=== PATIENT | female | born 1945 | race Caucasian/White ===

== ENCOUNTER 2016-07-28 17:08 | Inpatient (IN) | payer MEDICARE, OTHER ==
[2016-07-25 20:56] LABS: BASOPHILS 0.2 %; BASOPHILS ABSOLUTE 0.01 10/3/uL (0.0-0.16); EOSINOPHILS 2.7 %; EOSINOPHILS ABSOLUTE 0.11 10/3/uL (0.0-0.53); HEMATOCRIT 30.4 % (36.0-48.0); HEMOGLOBIN 9.5 g/dL (12.0-16.0); IMMATURE GRANULOCYTES 0.2 %; IMMATURE GRANULOCYTES ABSOLUTE 0.01 10/3/uL (0.0-0.11); LYMPHOCYTES 23.9 %; LYMPHOCYTES ABSOLUTE 0.98 10/3/uL (0.67-4.30); MEAN CORPUS HGB CONC 31.3 g/dL (32.0-36.0); MEAN CORPUSCULAR HEMOGLOB 31.3 pg (26.0-34.0); MEAN PLATELET VOLUME 10.6 fL (9.2-13.0); MONOCYTES 7.8 %; MONOCYTES ABSOLUTE 0.32 10/3/uL (0.21-1.20); NEUTROPHILS 65.2 %; NEUTROPHILS ABSOLUTE 2.67 10/3/uL (2.02-8.40); PLATELET COUNT 54 10/3/uL (150-400); RBC DISTRIBUTION WIDTH 21.2 % (12.0-16.0); RED CELL COUNT 3.04 10/6/uL (4.0-5.6)
[2016-07-25 20:58] LABS: MANUAL DIFF NO %; WHITE BLOOD CELLS 4.1 10/3/uL (4.5-10.5)
[2016-07-25 21:17] LABS: PLATELET ESTIMATE DEC (ADEQUATE)
[2016-07-25 21:18] LABS: ELLIPTOCYTES 1+ (3-10/OIF) (0-2/OIF); MACROCYTES 1+ (5-10/OIF) (0-5/OIF); MICROCYTES 1+ (5-10/OIF) (0-5/OIF); POIKILOCYTOSIS 1+ (5-10/OIF) (0-5/OIF); TEARDROP SHAPED RBCS OCC (0-2/OIF)
[2016-07-25 21:19] LABS: SCHISTOCYTES OCC (0-2/OIF)
--- NOTE | ~2016-07-28 | HP ---
History And Physical [address] [place] [address] NAME: CHRIS LEAHY : 45 STATUS : ADM Jose PAT#: [id number] AGE: 71 ADM/REG DATE : 07/28/16 MR#: [id number] REPORT SERV DATE: 07/29/16 DICTATED BY: DANNY MARTINEZ III DATE: 07/29/16 REPORT STATUS : Draft TRANSCRIBED BY: MODL DATE: 07/29/16 DATE OF ADMISSION: 07/28/2016 DICTATION ENDS HERE OB/MODL Danny Martinez III, M.D. / [id number] CC: Farhan Guillen III, M.D.
--- NOTE | ~2016-07-28 | DS ---
Discharge Summary [place] [id number] [facility] [place]. [address] NAME: CHRIS LEAHY : 45 STATUS : DIS IN PAT#: [id number] AGE: 71 ADM/REG DATE : 07/31/16 MR#: [id number] REPORT SERV DATE: 08/06/16 DICTATED BY: CATALINO HIGUERA DATE: 08/05/16 REPORT STATUS : Draft TRANSCRIBED BY: MODMatt DATE: 08/05/16 ADMISSION DATE: 07/28/2016 DISCHARGE DATE: 08/05/2016 DISCHARGE DIAGNOSES: 1. Exchange of bilateral double-J stents. 2. Urinary tract infection, currently resolved. 3. Toxic metabolic encephalopathy. 4. 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 5. Metastatic breast cancer with poor prognosis. 6. Type 2 diabetes mellitus. 7. Atelectasis. 8. Hypothyroidism. 9. Chronic kidney disease. 10.Hypertension. 11.Gastroesophageal reflux. 12.Major depression. 13.Obesity. CONSULTANTS DURING THIS HOSPITALIZATION: Dr. Danny Martinez of Urology and Dr. Orion Feng of Hematology/Oncology. INVASIVE PROCEDURES DONE DURING THIS HOSPITALIZATION: Exchange of double-J stents bilaterally for obstruction. Placement of a PleurX catheter for malignant ascites. BRIEF HISTORY OF PRESENT ILLNESS: The patient is a 71-year-old female, admitted to the Urology Service for exchange of the double-J stents. Medicine Service was initially asked to consult the patient for ascites. For detailed history and physical exam, please see note dictated by Dr. Danny Martinez on 07/28/2016. HOSPITAL COURSE: After being admitted to the hospital, Dr. Martinez did perform the procedure and exchanged both her double-J stents and relieved kidney obstruction. There was an evidence of urinary tract infection with Enterococcus cloacae that was sensitive to gentamicin, this patient was dosed with gentamicin appropriately and has received a complete treatment of the antibiotics. She also was on broad-spectrum antibiotics initially, which has now been tapered off. After her procedure, this patient was noted to have significant ascites; and in talking to the patient and the , it was found that she has had recurrent ascites and had multiple paracentesis prior to the admission. So, on this admission, she underwent a paracentesis with removal of 4.5 liters of ascitic fluid. When this was tested and cytology was done, it was positive for metastatic breast cancer. At that time, Dr. Feng and I had a discussion regarding her overall prognosis. Dr. Feng had a discussion with the and the patient regarding poor prognosis and possibility of hospice. The patient and were not ready for hospice. This patient has been made a DNR at this time and the 's hope is to get her to rehab, however, one of the hurdles was that this patient would not be able to take her chemotherapy in the rehab setting and the has agreed that she will be off the chemo during that time until she Discharge Summary [address] [id number] [facility] [place]. [address] NAME: CHRIS LEAHY : 45 STATUS : DIS IN PAT#: [id number] AGE: 71 ADM/REG DATE : 07/31/16 MR#: [id number] REPORT SERV DATE: 08/06/16 DICTATED BY: CATALINO HIGUERA DATE: 08/05/16 REPORT STATUS : Draft TRANSCRIBED BY: MIK DATE: 08/05/16 can go home. If her overall condition does not improve, hospice will be considered and and the patient both are aware of the poor prognosis that she has. The patient, otherwise, remained stable at this time and is ready to be transferred to skilled unit. DISCHARGE DISPOSITION: To detention unit. DISCHARGE ACTIVITY: Per facility. DISCHARGE DIET: As tolerated. DISCHARGE MEDICATIONS: Calcium 600 mg once daily, Zetia 10 mg once daily, iron 325 mg once daily, Levemir 25 units subcutaneous once at bedtime, lactulose 30 mL p.o. daily p.r.n. for constipation, Synthroid 100 mcg once daily, Megace 400 mg p.o. twice daily, DuoNebs q.6 hours p.r.n., Zoloft 100 mg daily, Nexium 40 mg daily p.r.n., Nova eyedrops as directed, and polymyxin B eyedrops as directed. DISCHARGE FOLLOWUP: With Dr. Orion Feng post rehab. More than 35 minutes spent planning this patient's discharge, reconciling medications, writing prescriptions, discussing hospital care, and follow up with the patient. AMINA/MIK Catalino Higuera M.D. / [id number] CC: Farhan Guillen III, M.D. Oliver Benton III, M.D. Darrell Johnson, M.D.
--- NOTE | ~2016-07-28 | OP ---
Record Of Operation [facility] [address] [place]. [address] NAME: CHRIS LEAHY : 45 STATUS : ADM Jose PAT#: [id number] AGE: 71 ADM/REG DATE : 07/28/16 MR#: [id number] REPORT SERV DATE: 07/29/16 DICTATED BY: DANNY RAMOS III DATE: 07/29/16 REPORT STATUS : Draft TRANSCRIBED BY: MODL DATE: 07/29/16 DATE OF PROCEDURE: 07/28/2016 PROCEDURE: Cystoscopy, bilateral retrograde, bilateral exchange of double-J stents. PREOPERATIVE DIAGNOSIS: Malignant ureteral obstruction. POSTOPERATIVE DIAGNOSIS: Malignant ureteral obstruction. ANESTHESIA: General. DESCRIPTION OF PROCEDURE: Following induction of adequate general anesthesia, the patient was placed in the dorsal lithotomy position, prepped and draped in a sterile fashion. The urethra was accessed and was widely patent with almost no coaptation. The bladder was entered. There was what appeared to be tumor in the trigone. I could see the orifices clearly. The remainder of the bladder was erythematous with no bulky masses. The left stent was pulled through the meatus. A wire was placed into the left renal pelvis and a [place] placed in the left renal pelvis. The system was opacified and a 624 stent was replaced with a loop in the kidney and loop in the bladder. An identical procedure was carried out on the right side. A 28-Tamazight Wyatt was left in place, due to the bleeding from the trigone. She tolerated the procedure well. OB/MODL Danny Ramos III, M.D. / [id number] CC: Farhan Guillen III, M.D.
--- NOTE | ~2016-07-28 | CN ---
Consultation Report [address] [place]. [address] NAME: CHRIS LEAHY : 45 STATUS : ADM IN [facility]#: [id number] AGE: 71 ADM/REG DATE : 07/28/16 MR#: [id number] REPORT SERV DATE: 07/29/16 DICTATED BY: IVANIA JENSEN DATE: 07/29/16 REPORT STATUS : Draft TRANSCRIBED BY: MODL DATE: 07/29/16 HOSPITALIST CONSULTATION DATE OF CONSULTATION: 07/29/2016 REASON FOR CONSULTATION: Medical management per Dr. Danielson. HISTORY OF PRESENT ILLNESS: This is an awake, alert, and oriented, very pleasant, 71-year- old, female, who was admitted today to Dr. Danielson, Urology, for treatment with IV antibiotics prior to placement of her second ureteral stents which is planned for tomorrow. Most recent stents were placed in 05/2016. She has a history of breast cancer with metastasis to both bone and bladder for which she is on chemotherapy at this time. Today, she reports generalized abdominal discomfort which she relates to ascites and reports that she had a paracentesis done approximately 1 week ago with removal of 7 L of fluid. She has noticed an increase in abdominal fluid since the initial relief from the paracentesis. She also reports generalized weakness, worse with activity, that has not resolved since the transfusion of 2 units of packed red blood cells approximately 2 weeks ago as an outpatient. Otherwise, she denies chest pain, palpitations, dyspnea, headaches, dizziness, nausea, vomiting, and diarrhea. PAST MEDICAL HISTORY: Significant for 1. Metastatic breast cancer with known metastasis to the bone and bladder. 2. Hypertension. 3. Type 2 insulin-dependent diabetes mellitus. 4. CKD stage 3 with a previously noted baseline creatinine of approximately 2. 5. GERD. 6. Osteoarthritis. 7. Depression. 8. Recurrent urinary tract infections. 9. History of obstructive uropathy with ureteral stent placement. PAST SURGICAL HISTORY: Significant for 1. Ureteral stent placement, 05/2016. 2. Cholecystectomy. 3. Abdominal hysterectomy. 4. Bilateral total knee replacement. 5. Right breast lumpectomy. PATIENT'S ONCOLOGIST: Orion Feng M.D. SOCIAL HISTORY: The patient is and lives at home with her . She is retired. She denies tobacco, alcohol, and illicit drug use. FAMILY HISTORY: Mother has a history of congestive heart failure. Father has a history of Consultation Report [address] [place]. [address] NAME: CHRIS LEAHY : 45 STATUS : ADM IN PAT#: [id number] AGE: 71 ADM/REG DATE : 07/28/16 MR#: [id number] REPORT SERV DATE: 07/29/16 DICTATED BY: IVANIA JENSEN DATE: 07/29/16 REPORT STATUS : Draft TRANSCRIBED BY: MIK DATE: 07/29/16 prostate cancer. Her siblings have a history of heart disease with 1 sibling also having a history of Crohn's disease. HOME MEDICATIONS: 1. Calcium carbonate 600 mg p.o. twice daily. 2. Nexium 40 mg p.o. daily p.r.n. 3. Zetia 10 mg p.o. daily. 4. Ferrous sulfate 325 mg p.o. daily. 5. Levemir 25 units subcutaneous every bedtime. 6. Lactulose 30 mL p.o. daily. 7. Synthroid 100 mcg p.o. daily. 8. Ibrance 100 mg p.o. daily on days 1 through 21, hold for 7 days, repeat cycle. 9. Polymyxin 1 drop both eyes 3 times daily. 10.Zoloft 100 mg p.o. daily. 11.Avenova 0.01% solution apply to eyelids with cotton ball, allow some of the solution to get into both eyes twice daily. 12.Faslodex injection 500 mg IM q.30 days which is administered by Dr. Orion Feng's office, last dose 07/19/2016. REVIEW OF SYSTEMS: A complete 10-point review of systems was negative except as per HPI. PHYSICAL EXAMINATION: VITAL SIGNS: T 99.0, P 73, RR 17, BP 122/60, SpO2 of 92% on 2 L nasal cannula. GENERAL: This is a well-appearing, female, in no acute distress. NEUROLOGIC: Alert and oriented x3 without focal deficit. HEENT: Normocephalic, atraumatic without lymphadenopathy. NECK: Supple. No JVD. LUNGS: CTA in all lung coburn with normal respiratory effort but noted diminished in bilateral bases. CV: Regular rate and rhythm. S1, S2 auscultated without murmur, rub, gallop or click. ABDOMEN: Soft, round, nontender. Bowel sounds active in all quadrants. No masses. Ascites noted. EXTREMITIES: Generalized edema in all extremities. No cyanosis noted. Cap refill within normal limits. Multiple patches of discoloration on bilateral upper extremities from multiple outpatient treatments. PSYCH: Normal affect. SKIN: Clean, dry, and intact with mucous membranes pink and moist. PERTINENT LABS: Include white count of 5, hemoglobin and hematocrit of 9.8 and 31.1. Of note, BUN and creatinine are 16 and 1.23. ASSESSMENT AND PLAN: 1. Type 2 insulin-dependent diabetes mellitus. This is chronic and patient reports it was recently labile at home. We will continue her home medications. We will start sliding Consultation Report [address] [place]. [address] NAME: CHRIS LEAHY : 45 STATUS : ADM IN PAT#: [id number] AGE: 71 ADM/REG DATE : 07/28/16 MR#: [id number] REPORT SERV DATE: 07/29/16 DICTATED BY: IVANIA JENSEN DATE: 07/29/16 REPORT STATUS : Draft TRANSCRIBED BY: MIK DATE: 07/29/16 scale insulin level 1. We will monitor her labs and we will start a diabetic diet when appropriate. 2. Chronic kidney disease. This is chronic. Stage III at last admission with a noted baseline creatinine of 2. We will proceed with IV fluids as ordered by Dr. Danielson. We will monitor her labs. At this time, her labs are stable, but we will consider Nephrology consult if appropriate throughout her course of stay. 3. Hypertension. This is chronic and currently well controlled. We will continue her current medications. Monitor labs and add p.r.n. blood pressure control if necessary. 4. Breast cancer with metastasis to both bone and bladder. She is currently on both p.o. and IM chemo. We will provide courtesy notification to her oncologist, monitor labs, and continue her current treatment. 5. Gastroesophageal reflux disease. This is chronic. We will continue her current medications. Provide p.r.n. symptom management if needed and monitor her labs. 6. Depression. This is also chronic. We will continue her current medications. Monitor labs and provide any additional support as needed throughout this hospital stay. Thank you for this consult. We are pleased to follow this patient with you. This consult was completed through thorough review of [employer], old records, [employer], current chart as well as thorough interview with the patient. ANTONIO/MIK Ivania Jensen NP / [id number] CC: Farhan Lechuga M.D.
[2016-07-28 15:16] LABS: ASCORBIC ACID (UR NOT ORDER) NEG (NEG); BILIRUBIN, URINE NEGATIVE (NEG); KETONE, URINE NEGATIVE (NEG); LEUKOCYTE ESTERASE(NOT OR LARGE (NEG); NITRITE (URINE) POS (NEG)
[2016-07-28 15:16] LABS: BASOPHILS 0.6 %; BASOPHILS ABSOLUTE 0.03 10/3/uL (0.0-0.16); EOSINOPHILS 3.4 %; EOSINOPHILS ABSOLUTE 0.17 10/3/uL (0.0-0.53); ER CBC TAT 0 Hrs 15 Mins; HEMATOCRIT 31.1 % (36.0-48.0); HEMOGLOBIN 9.8 g/dL (12.0-16.0); IMMATURE GRANULOCYTES 0.4 %; IMMATURE GRANULOCYTES ABSOLUTE 0.02 10/3/uL (0.0-0.11); LYMPHOCYTES 22.7 %; LYMPHOCYTES ABSOLUTE 1.13 10/3/uL (0.67-4.30); MEAN CORPUS HGB CONC 31.5 g/dL (32.0-36.0); MEAN CORPUSCULAR HEMOGLOB 31.3 pg (26.0-34.0); MEAN CORPUSCULAR VOLUME 99.4 fL (80-100); MEAN PLATELET VOLUME 9.7 fL (9.2-13.0); MONOCYTES ABSOLUTE 0.55 10/3/uL (0.21-1.20); NEUTROPHILS 61.9 %; NEUTROPHILS ABSOLUTE 3.08 10/3/uL (2.02-8.40); RBC DISTRIBUTION WIDTH 21.6 % (12.0-16.0); RED CELL COUNT 3.13 10/6/uL (4.0-5.6)
[2016-07-28 15:17] LABS: MANUAL DIFF NO %; PLATELET COUNT 96 10/3/uL (150-400)
[2016-07-28 15:17] LABS: WBC (NOT ORDERED) (RFLEX) > 182 (0-5)
[2016-07-28 15:24] LABS: A/G RATIO 0.4 (0.7-1.9); CALCIUM, SERUM 7.9 MG/DL (8.5-10.4); CHLORIDE, SERUM 106 MMOL/L (96-112); CO2 (CARBON DIOXIDE) 29 MMOL/L (24-34); CREATININE 1.23 MG/DL (0.55-1.02); GFR AFRICAN AMERICAN 51 ML/MIN (>=60); GFR NON AFRICAN AMERICAN 44 ML/MIN (>=60); GLOBULIN 5.2 G/DL (2.5-4.1); GLUCOSE, SERUM 162 MG/DL (60-99); POTASSIUM, SERUM 4.4 MMOL/L (3.5-5.3); SGOT(AST) 16 U/L (5-40); SGPT(ALT) 19 U/L (5-65); SODIUM, SERUM 140 MMOL/L (135-148); TOTAL BILIRUBIN 0.4 MG/DL (0-1.2); TOTAL PROTEIN 7.2 G/DL (6.0-8.5)
[2016-07-28 15:27] LABS: ALKALINE PHOSPHATASE 162 U/L (45-117); BUN (BLOOD UREA NITROGEN) 16 MG/DL (6-23)
[~2016-07-28 17:08] MED LIST: ACET500CAP PO; ADVIL PO; AFINITOR10 MG PO; AMARYL2 PO; AROMASIN25 PO; C25; CALTRAT600 PO; DEPRESSION MED PO; ENULOSE PO; EYE; FASLODEX; FASLODEX IM; FASLODEX SC; FERROUS SULF325 M1 PO; FORTAMET1000 MG PO; FORTAMET500 MG PO; GLUCOPHAGE1000 MG PO; HUMALOGPEN SC; IBRANCE125; IBRANCE125 PO; IRON325 MG PO; LEVEMIR SC; LEVOTHYROXIN100 MCG PO; LISINOPRIL PO; MELOXICAM PO; METFORMIN PO; MIRALAX POWDER1 PKT PO; MOBIC7.5 PO; MYRBETRIQ PO; MYRBETRIQ50 MG PO; NEXIUM40 PO; OS500+D PO; OXYCOD PO; PRIN10 PO; PROTONIX PO; REM15 PO; T PO; XELODA PO; ZETIA PO; ZOL100 PO; ZOL50 PO
[2016-07-28] MEDS ORDERED: IBRANCE100 PO (17:25)
[2016-07-28] MEDS ORDERED: [UNRECOGNIZED DRUG - OTHER] OPH (17:27)
[2016-07-28] MEDS ORDERED: POLYMYXIN B/ OPH (17:27)
[2016-07-28] MEDS ORDERED: SYN1 PO (17:28)
[2016-07-28] MEDS ORDERED: ZOL100 PO (17:28)
[2016-07-28] MEDS ORDERED: CONSTULOSE PO (17:28)
[2016-07-28] MEDS ORDERED: NEXIUM40 PO (17:30)
[2016-07-28] MEDS ORDERED: ZETIA PO (17:30)
[2016-07-28] MEDS ORDERED: LEVEMFLXPN SC (17:31)
[2016-07-28] MEDS ORDERED: CALTRAT600 PO (17:33)
[2016-07-28] MEDS ORDERED: FERROUS SULF325 M1 PO (17:34)
[2016-07-28] MEDS ORDERED: FASLODEX IM (17:38)
[2016-07-29 07:05] LABS: BASOPHILS 0.5 %; BASOPHILS ABSOLUTE 0.02 10/3/uL (0.0-0.16); EOSINOPHILS 2.9 %; EOSINOPHILS ABSOLUTE 0.12 10/3/uL (0.0-0.53); HEMATOCRIT 32.6 % (36.0-48.0); HEMOGLOBIN 9.9 g/dL (12.0-16.0); IMMATURE GRANULOCYTES 0.7 %; IMMATURE GRANULOCYTES ABSOLUTE 0.03 10/3/uL (0.0-0.11); LYMPHOCYTES 19.2 %; LYMPHOCYTES ABSOLUTE 0.79 10/3/uL (0.67-4.30); MEAN CORPUS HGB CONC 30.4 g/dL (32.0-36.0); MEAN CORPUSCULAR VOLUME 102.2 fL (80-100); MONOCYTES 12.1 %; NEUTROPHILS 64.6 %; NEUTROPHILS ABSOLUTE 2.66 10/3/uL (2.02-8.40); PLATELET COUNT 91 10/3/uL (150-400); RBC DISTRIBUTION WIDTH 21.4 % (12.0-16.0); RED CELL COUNT 3.19 10/6/uL (4.0-5.6); WHITE BLOOD CELLS 4.1 10/3/uL (4.5-10.5)
[2016-07-29 07:12] LABS: MANUAL DIFF NO %
[2016-07-29 07:23] LABS: BUN (BLOOD UREA NITROGEN) 14 MG/DL (6-23); CALCIUM, SERUM 7.5 MG/DL (8.5-10.4); CHLORIDE, SERUM 109 MMOL/L (96-112); CO2 (CARBON DIOXIDE) 29 MMOL/L (24-34); CREATININE 1.13 MG/DL (0.55-1.02); GENTAMICIN,TROUGH 4.2 MCG/ML (1.0-2.0); GFR AFRICAN AMERICAN 57 ML/MIN (>=60); GFR NON AFRICAN AMERICAN 49 ML/MIN (>=60); GLUCOSE, SERUM 162 MG/DL (60-99); POTASSIUM, SERUM 4.6 MMOL/L (3.5-5.3); SODIUM, SERUM 143 MMOL/L (135-148)
[2016-07-30 08:18] LABS: BASOPHILS 0.4 %; BASOPHILS ABSOLUTE 0.02 10/3/uL (0.0-0.16); EOSINOPHILS 1.8 %; EOSINOPHILS ABSOLUTE 0.08 10/3/uL (0.0-0.53); HEMATOCRIT 29.4 % (36.0-48.0); HEMOGLOBIN 8.9 g/dL (12.0-16.0); IMMATURE GRANULOCYTES 0.7 %; IMMATURE GRANULOCYTES ABSOLUTE 0.03 10/3/uL (0.0-0.11); LYMPHOCYTES 14.7 %; LYMPHOCYTES ABSOLUTE 0.67 10/3/uL (0.67-4.30); MEAN CORPUS HGB CONC 30.3 g/dL (32.0-36.0); MEAN CORPUSCULAR VOLUME 102.4 fL (80-100); MEAN PLATELET VOLUME 9.7 fL (9.2-13.0); MONOCYTES 14.2 %; MONOCYTES ABSOLUTE 0.65 10/3/uL (0.21-1.20); NEUTROPHILS 68.2 %; NEUTROPHILS ABSOLUTE 3.12 10/3/uL (2.02-8.40); PLATELET COUNT 91 10/3/uL (150-400); RBC DISTRIBUTION WIDTH 22.1 % (12.0-16.0); RED CELL COUNT 2.87 10/6/uL (4.0-5.6); WHITE BLOOD CELLS 4.6 10/3/uL (4.5-10.5)
[2016-07-30 08:19] LABS: MANUAL DIFF NO %
[2016-07-30 08:48] LABS: PLATELET ESTIMATE DEC (ADEQUATE)
[2016-07-30 08:50] LABS: POLYCHROMASIA 1+ (2-5/OIF) (0-1/OIF)
[2016-07-30 08:56] LABS: BUN (BLOOD UREA NITROGEN) 14 MG/DL (6-23); CHLORIDE, SERUM 106 MMOL/L (96-112); CO2 (CARBON DIOXIDE) 27 MMOL/L (24-34); CREATININE 1.26 MG/DL (0.55-1.02); GENTAMICIN,TROUGH 1.3 MCG/ML (1.0-2.0); GFR AFRICAN AMERICAN 50 ML/MIN (>=60); GFR NON AFRICAN AMERICAN 43 ML/MIN (>=60); GLUCOSE, SERUM 157 MG/DL (60-99); SODIUM, SERUM 140 MMOL/L (135-148)
[2016-07-30 08:59] LABS: CALCIUM, SERUM 6.3 MG/DL (8.5-10.4); POTASSIUM, SERUM 5.2 MMOL/L (3.5-5.3)
[2016-07-31 05:06] LABS: BASOPHILS 0.3 %; BASOPHILS ABSOLUTE 0.01 10/3/uL (0.0-0.16); EOSINOPHILS 1.8 %; EOSINOPHILS ABSOLUTE 0.06 10/3/uL (0.0-0.53); HEMOGLOBIN 7.4 g/dL (12.0-16.0); IMMATURE GRANULOCYTES 0.6 %; IMMATURE GRANULOCYTES ABSOLUTE 0.02 10/3/uL (0.0-0.11); LYMPHOCYTES 18.2 %; MEAN CORPUS HGB CONC 30.3 g/dL (32.0-36.0); MEAN CORPUSCULAR VOLUME 102.1 fL (80-100); MEAN PLATELET VOLUME 9.2 fL (9.2-13.0); MONOCYTES 10.9 %; MONOCYTES ABSOLUTE 0.36 10/3/uL (0.21-1.20); NEUTROPHILS 68.2 %; NEUTROPHILS ABSOLUTE 2.24 10/3/uL (2.02-8.40); PLATELET COUNT 73 10/3/uL (150-400); RBC DISTRIBUTION WIDTH 21.5 % (12.0-16.0); RED CELL COUNT 2.39 10/6/uL (4.0-5.6); WHITE BLOOD CELLS 3.3 10/3/uL (4.5-10.5)
[2016-07-31 05:09] LABS: HEMATOCRIT 24.4 % (36.0-48.0); MANUAL DIFF NO %
[2016-07-31 05:18] LABS: ALBUMIN 2.2 G/DL (3.5-5.0); BUN (BLOOD UREA NITROGEN) 13 MG/DL (6-23); CHLORIDE, SERUM 105 MMOL/L (96-112); CO2 (CARBON DIOXIDE) 25 MMOL/L (24-34); CREATININE 1.16 MG/DL (0.55-1.02); GFR AFRICAN AMERICAN 55 ML/MIN (>=60); GFR NON AFRICAN AMERICAN 47 ML/MIN (>=60); GLUCOSE, SERUM 126 MG/DL (60-99); POTASSIUM, SERUM 4.2 MMOL/L (3.5-5.3); SODIUM, SERUM 138 MMOL/L (135-148)
[2016-07-31 05:25] LABS: CALCIUM, SERUM 6.4 MG/DL (8.5-10.4); PHOSPHORUS, SERUM 2.1 MG/DL (2.5-4.5)
[2016-07-31 05:44] LABS: ANISOCYTOSIS 1+ (5-10/OIF) (0-5/OIF); MACROCYTES 1+ (5-10/OIF) (0-5/OIF); PLATELET ESTIMATE DEC (ADEQUATE)
[2016-07-31 05:45] LABS: HYPOCHROMIA 1+ (3-10/OIF) (0-2/OIF)
[2016-08-01 08:04] LABS: BASOPHILS 0.5 %; BASOPHILS ABSOLUTE 0.02 10/3/uL (0.0-0.16); EOSINOPHILS 2.4 %; HEMATOCRIT 29.2 % (36.0-48.0); HEMOGLOBIN 8.9 g/dL (12.0-16.0); IMMATURE GRANULOCYTES ABSOLUTE 0.04 10/3/uL (0.0-0.11); LYMPHOCYTES 16.2 %; LYMPHOCYTES ABSOLUTE 0.68 10/3/uL (0.67-4.30); MEAN CORPUS HGB CONC 30.5 g/dL (32.0-36.0); MEAN CORPUSCULAR HEMOGLOB 30.3 pg (26.0-34.0); MEAN CORPUSCULAR VOLUME 99.3 fL (80-100); MEAN PLATELET VOLUME 9.1 fL (9.2-13.0); MONOCYTES 10.2 %; MONOCYTES ABSOLUTE 0.43 10/3/uL (0.21-1.20); NEUTROPHILS 69.7 %; NEUTROPHILS ABSOLUTE 2.94 10/3/uL (2.02-8.40); PLATELET COUNT 76 10/3/uL (150-400); RBC DISTRIBUTION WIDTH 21.4 % (12.0-16.0); RED CELL COUNT 2.94 10/6/uL (4.0-5.6); WHITE BLOOD CELLS 4.2 10/3/uL (4.5-10.5)
[2016-08-01 08:05] LABS: MANUAL DIFF NO %
[2016-08-01 08:22] LABS: BUN (BLOOD UREA NITROGEN) 14 MG/DL (6-23); CALCIUM, SERUM 6.5 MG/DL (8.5-10.4); CHLORIDE, SERUM 104 MMOL/L (96-112); CO2 (CARBON DIOXIDE) 27 MMOL/L (24-34); GFR AFRICAN AMERICAN 58 ML/MIN (>=60); GFR NON AFRICAN AMERICAN 50 ML/MIN (>=60); GLUCOSE, SERUM 134 MG/DL (60-99); PHOSPHORUS, SERUM 2.5 MG/DL (2.5-4.5); POTASSIUM, SERUM 3.9 MMOL/L (3.5-5.3); SODIUM, SERUM 139 MMOL/L (135-148)
[2016-08-01 08:56] LABS: ANISOCYTOSIS 1+ (5-10/OIF) (0-5/OIF); PLATELET ESTIMATE DEC (ADEQUATE)
[2016-08-03 06:57] LABS: BASOPHILS 0.4 %; BASOPHILS ABSOLUTE 0.03 10/3/uL (0.0-0.16); EOSINOPHILS 2.4 %; EOSINOPHILS ABSOLUTE 0.17 10/3/uL (0.0-0.53); HEMOGLOBIN 10.5 g/dL (12.0-16.0); IMMATURE GRANULOCYTES 0.7 %; IMMATURE GRANULOCYTES ABSOLUTE 0.05 10/3/uL (0.0-0.11); LYMPHOCYTES 15.9 %; LYMPHOCYTES ABSOLUTE 1.15 10/3/uL (0.67-4.30); MEAN CORPUS HGB CONC 30.6 g/dL (32.0-36.0); MEAN CORPUSCULAR HEMOGLOB 30.9 pg (26.0-34.0); MEAN CORPUSCULAR VOLUME 100.9 fL (80-100); MEAN PLATELET VOLUME 9.3 fL (9.2-13.0); MONOCYTES 10.8 %; MONOCYTES ABSOLUTE 0.78 10/3/uL (0.21-1.20); NEUTROPHILS 69.8 %; NEUTROPHILS ABSOLUTE 5.05 10/3/uL (2.02-8.40); PLATELET COUNT 87 10/3/uL (150-400); RBC DISTRIBUTION WIDTH 20.7 % (12.0-16.0)
[2016-08-03 07:03] LABS: HEMATOCRIT 34.3 % (36.0-48.0); MANUAL DIFF NO %; WHITE BLOOD CELLS 7.2 10/3/uL (4.5-10.5)
[2016-08-03 07:12] LABS: ALBUMIN 1.8 G/DL (3.5-5.0); BUN (BLOOD UREA NITROGEN) 14 MG/DL (6-23); CALCIUM, SERUM 7.8 MG/DL (8.5-10.4); CHLORIDE, SERUM 105 MMOL/L (96-112); CO2 (CARBON DIOXIDE) 31 MMOL/L (24-34); CREATININE 1.09 MG/DL (0.55-1.02); GFR AFRICAN AMERICAN 59 ML/MIN (>=60); GFR NON AFRICAN AMERICAN 51 ML/MIN (>=60); GLUCOSE, SERUM 151 MG/DL (60-99); PHOSPHORUS, SERUM 2.1 MG/DL (2.5-4.5); POTASSIUM, SERUM 4.1 MMOL/L (3.5-5.3); SODIUM, SERUM 141 MMOL/L (135-148)
[2016-08-04 09:39] LABS: BASOPHILS 0.4 %; BASOPHILS ABSOLUTE 0.03 10/3/uL (0.0-0.16); EOSINOPHILS 2.1 %; EOSINOPHILS ABSOLUTE 0.15 10/3/uL (0.0-0.53); HEMATOCRIT 34.7 % (36.0-48.0); HEMOGLOBIN 10.6 g/dL (12.0-16.0); IMMATURE GRANULOCYTES 1.4 %; LYMPHOCYTES 15.6 %; LYMPHOCYTES ABSOLUTE 1.12 10/3/uL (0.67-4.30); MEAN CORPUS HGB CONC 30.5 g/dL (32.0-36.0); MEAN CORPUSCULAR HEMOGLOB 30.8 pg (26.0-34.0); MEAN CORPUSCULAR VOLUME 100.9 fL (80-100); MEAN PLATELET VOLUME 9.6 fL (9.2-13.0); MONOCYTES 7.8 %; MONOCYTES ABSOLUTE 0.56 10/3/uL (0.21-1.20); NEUTROPHILS 72.7 %; NEUTROPHILS ABSOLUTE 5.23 10/3/uL (2.02-8.40); PLATELET COUNT 104 10/3/uL (150-400); RBC DISTRIBUTION WIDTH 20.3 % (12.0-16.0); RED CELL COUNT 3.44 10/6/uL (4.0-5.6); WHITE BLOOD CELLS 7.2 10/3/uL (4.5-10.5)
[2016-08-04 09:40] LABS: MANUAL DIFF NO %
[2016-08-04 09:54] LABS: BUN (BLOOD UREA NITROGEN) 17 MG/DL (6-23); CHLORIDE, SERUM 101 MMOL/L (96-112); CREATININE 1.03 MG/DL (0.55-1.02); GFR AFRICAN AMERICAN 63 ML/MIN (>=60); GFR NON AFRICAN AMERICAN 55 ML/MIN (>=60); GLUCOSE, SERUM 150 MG/DL (60-99); PHOSPHORUS, SERUM 2.4 MG/DL (2.5-4.5); SODIUM, SERUM 141 MMOL/L (135-148)
[2016-08-04 09:57] LABS: CO2 (CARBON DIOXIDE) 39 MMOL/L (24-34)
[2016-08-05 04:36] LABS: BASOPHILS 0.8 %; BASOPHILS ABSOLUTE 0.05 10/3/uL (0.0-0.16); EOSINOPHILS 3.2 %; EOSINOPHILS ABSOLUTE 0.21 10/3/uL (0.0-0.53); HEMATOCRIT 33.6 % (36.0-48.0); HEMOGLOBIN 10.3 g/dL (12.0-16.0); IMMATURE GRANULOCYTES 0.9 %; IMMATURE GRANULOCYTES ABSOLUTE 0.06 10/3/uL (0.0-0.11); LYMPHOCYTES 15.9 %; LYMPHOCYTES ABSOLUTE 1.04 10/3/uL (0.67-4.30); MEAN CORPUS HGB CONC 30.7 g/dL (32.0-36.0); MEAN CORPUSCULAR HEMOGLOB 30.8 pg (26.0-34.0); MEAN CORPUSCULAR VOLUME 100.6 fL (80-100); MEAN PLATELET VOLUME 9.8 fL (9.2-13.0); MONOCYTES 7.2 %; MONOCYTES ABSOLUTE 0.47 10/3/uL (0.21-1.20); PLATELET COUNT 108 10/3/uL (150-400); RED CELL COUNT 3.34 10/6/uL (4.0-5.6); WHITE BLOOD CELLS 6.5 10/3/uL (4.5-10.5)
[2016-08-05 04:37] LABS: MANUAL DIFF NO %
[2016-08-05 04:53] LABS: ALBUMIN 1.8 G/DL (3.5-5.0); BUN (BLOOD UREA NITROGEN) 17 MG/DL (6-23); CALCIUM, SERUM 8.2 MG/DL (8.5-10.4); CHLORIDE, SERUM 102 MMOL/L (96-112); CO2 (CARBON DIOXIDE) 38 MMOL/L (24-34); GFR AFRICAN AMERICAN 66 ML/MIN (>=60); GFR NON AFRICAN AMERICAN 57 ML/MIN (>=60); GLUCOSE, SERUM 123 MG/DL (60-99); PHOSPHORUS, SERUM 2.5 MG/DL (2.5-4.5); POTASSIUM, SERUM 4.2 MMOL/L (3.5-5.3); SODIUM, SERUM 142 MMOL/L (135-148)
[2016-08-05 06:23] LABS: PROCALCITONIN 0.22 ng/mL (<0.5)
== END 2016-08-05 19:17 | DRG 686 ==
LOC: ER 17:08 → 4SO 20:06
PROVIDERS: Emergency Medicine; Family Medicine; Internal Medicine; Urology
DX: C79.11 Secondary malignant neoplasm of bladder (principal); G92 Toxic encephalopathy; R18.0 Malignant ascites; J18.9 Pneumonia, unspecified organism; Z68.41 Body mass index [BMI] 40.0-44.9, adult; Z66 Do not resuscitate; C77.0 Secondary and unspecified malignant neoplasm of lymph nodes of head, face and neck; C79.51 Secondary malignant neoplasm of bone; C79.52 Secondary malignant neoplasm of bone marrow; N13.8 Other obstructive and reflux uropathy; N39.0 Urinary tract infection, site not specified; J98.11 Atelectasis; N18.3 Chronic kidney disease, stage 3 (moderate); Z85.3 Personal history of malignant neoplasm of breast; Z85.828 Personal history of other malignant neoplasm of skin; Z79.899 Other long term (current) drug therapy; R53.1 Weakness; I12.9 Hypertensive chronic kidney disease with stage 1 through stage 4 chronic kidney disease, or unspecified chronic kidney disease; E11.22 Type 2 diabetes mellitus with diabetic chronic kidney disease; Z79.4 Long term (current) use of insulin; K21.9 Gastro-esophageal reflux disease without esophagitis; M19.90 Unspecified osteoarthritis, unspecified site; Z90.11 Acquired absence of right breast and nipple; Z96.653 Presence of artificial knee joint, bilateral; E03.9 Hypothyroidism, unspecified; F32.9 Major depressive disorder, single episode, unspecified; E66.9 Obesity, unspecified; B95.2 Enterococcus as the cause of diseases classified elsewhere; Z51.5 Encounter for palliative care; R63.0 Anorexia
CPT/HCPCS: 32550; 36415; 49418; 71010; 71020; 74420; 80048; 80053; 80069; 80170; 81001; 82962; 83690; 84100; 84145; 85025; 86850; 86870; 86900; 86901; 86920; 86922; 87077; 87086; 87186; 88112; 88305; 93005; 94002; 94640; 97110-GP; 97161-GP; 97164-GP; 97530-GP; 99152; 99285; A9270-GY; C1729; C1758; C1769; C2617; G8978-CM-GP; G8979-CL-GP; J1580; J1940; J2250; J2370; J3010; J3370; P9016; P9047; Q9967